=== PATIENT | female | born 1965 | race Caucasian/White ===

== ENCOUNTER → 2017-04-25 | Outpatient (CLI) | payer OTHER | LOC: FIMAGING 13:34 | PROVIDERS: ATTEND Obstetrics & Gynecology | DX: Z12.31 Encounter for screening mammogram for malignant neoplasm of breast (principal) | CPT/HCPCS: G0202 ==

== ENCOUNTER → 2017-05-09 | Outpatient (CLI) | payer OTHER | LOC: FIMAGING 13:08 | PROVIDERS: ATTEND Physical Medicine & Rehabilitation | DX: M51.36 Other intervertebral disc degeneration, lumbar region (principal); M51.37 Other intervertebral disc degeneration, lumbosacral region; M46.96 Unspecified inflammatory spondylopathy, lumbar region; M51.26 Other intervertebral disc displacement, lumbar region ==

== ENCOUNTER 2018-04-14 13:52 | Emergency (ER) | payer OTHER ==
[2018-04-14 14:00] VITALS: BP 155/103
--- NOTE | 2018-04-14 14:55 | EDPHY ---
H & P Time Seen by Provider: 04/14/18 14:33 HPI/ROS: CHIEF COMPLAINT: Finger injury HISTORY OF PRESENT ILLNESS: 52-year-old female presents to the emergency department complaining of isolated pain in her right ring finger. The patient states that she had a syncopal episode yesterday while she was at home and her right ring finger at the PIP joint was displaced. She was able to relocate this. She now presents to the emergency department for evaluation of her right finger injury. She states that she has a history of labile blood pressure. She is on labetalol 200 mg three times daily. They have been changing the dosage of this. She states that she also has a history of chronic pain in his on opiate medication that they are also waiting her down. She states that she has had these syncopal episodes multiple times in the past. The episode yesterday was witnessed by her he tried to catch her. He does not think that she hit her head. She denies a headache. Denies neck or back pain. Denies chest pain or difficulty breathing. Denies abdominal pain. Denies paresthesias in her fingers. Denies pain in her wrist or elbow. REVIEW OF SYSTEMS: Constitutional: No fever, no chills. Eyes: No double or blurry vision. ENT: No sore throat. Respiratory: No cough, no shortness of breath. Cardiac: No chest pain. Gastrointestinal: No abdominal pain, vomiting or diarrhea. Genitourinary: No dysuria. Musculoskeletal: No neck or back pain. Skin: No rashes. Neurological: No headache. Past Medical/Surgical History: Chronic neck pain, hypothyroidism, cervical spine surgery Social History: Smoking Status: Never smoked Physical Exam: General Appearance: Alert, no distress. No visible signs of trauma to her head. She is mentating normally and answering questions appropriately. 155/103 Eyes: Pupils equal and round. Extraocular motions are all intact. ENT: Mouth: Mucous membranes moist. Respiratory: No wheezing, rhonchi, or rales, lungs are clear to auscultation. Cardiovascular: Regular rate and rhythm. Gastrointestinal: Abdomen is soft and nontender, no masses, no rebound or guarding, bowel sounds normal. Neurological: Alert and oriented x 3, cranial nerves II through XII grossly intact Skin: Warm and dry, no rashes. Musculoskeletal: Nontender to palpate along the cervical, thoracic or lumbar spine. Neck is supple. Extremities: Swelling and ecchymosis noted to the right 4th finger. She has pain with palpation especially at the right 4th PIP joint. Limited flexion secondary to pain. Normal sensation to light touch with normal 2 point discrimination. The other fingers do not appear injured. No rotational deformities noted currently. Full range of motion of her right wrist. Nontender to palpate the right elbow or shoulder. Psychiatric: Patient is oriented X 3, there is no agitation. Constitutional: Initial Vital Signs Temperature (C) 36.7 C 04/14/18 13:58 Heart Rate 75 04/14/18 13:58 Respiratory Rate 18 04/14/18 13:58 Blood Pressure 155/103 H 04/14/18 13:58 O2 Sat (%) 97 04/14/18 13:58 O2 Delivery Mode Room Air Allergies/Adverse Reactions: EMIR Inhibitors [Emir Inhibitors] Allergy (Verified 04/14/18 13:55) losartan potassium [From Cozaar] Allergy (Verified 04/14/18 13:55) tramadol [Tramadol] Allergy (Verified 04/14/18 13:55) Home Medications: Medication Instructions Recorded Acyclovir [Zovirax 400 mg (*)] 400 mg PO TID PRN 01/15/14 Gabapentin [Neurontin 400 MG (*)] 400 mg PO TID 01/15/14 Levothyroxine [Synthroid 75 mcg 75 mcg PO DAILY06 01/15/14 (*)] Venlafaxine Xr [Effexor Xr] 150 mg PO DAILY 01/15/14 Ibuprofen [Motrin (*)] 600 mg PO Q6 PRN 01/17/14 Cholecalciferol Vit D3 [Vitamin D3 2,000 units PO DAILY 02/25/15 2000 units] Norgestimate-Ethinyl Estradiol 1 tab PO DAILY 02/25/15 [Sprintec 28 Day Tablet] Labetalol HCl [Trandate 100 mg (*)] 100 mg PO BID #60 tab 03/02/15 Albuterol [Proventil Neb] 3 ml IH TID PRN 03/16/15 Guaifenesin/D-Methorphan Hb 1 tab PO BID PRN 03/16/15 [Mucinex Dm ER 1,200-60 mg Tab] oxyCODONE IR [Oxycodone Ir (*)] 60 mg PO TID PRN 03/16/15 SUBOXONE 2mg/0.5mg 04/14/18 tiZANidine HCL 04/14/18 Medical Decision Making - Diagnostics Imaging Results: Imaging Impressions Finger X-Ray 04/14/18 14:01 Impression: No fracture or persistent malalignment. Imaging: I viewed and interpreted images myself Procedures: Patient was placed in [place] splint and fingers were facundo-taped. ED Course/Re-evaluation: 52-year-old female presents to the emergency department after having syncopal episode yesterday. She does not want to be worked up for syncopal episode. She states that this happens numerous times as a are adjusting her blood pressure. She only wants evaluation of her right middle finger. X-rays of the right middle finger reveal no obvious fractures. She reports that the finger was dislocated and she was able to easily relocate this on her own. She was placed in a splint and given orthopedic hand surgical referral. Differential Diagnosis: Including but not limited to finger sprain, dislocation, fracture Syncope including but not limited to vasovagal syncope, arrhythmia, dehydration , and blood loss. Departure - Departure Disposition: Home, Routine, Self-Care Clinical Impression: Sprain of right ring finger Qualifiers: Encounter type: initial encounter Sprain of finger site: interphalangeal joint Qualified Code(s): S63.634A - Sprain of interphalangeal joint of right ring finger, initial encounter Condition: Good Instructions: Finger Sprain (ED) Additional Instructions: Keep splint on and keep it dry. Facundo-taped for comfort and support. Ibuprofen 600 mg every 8 hr as needed for pain. Ice to help reduce swelling. Follow up with orthopedic hand surgeon. Referrals: Kennedy Barrera MD [Medical Doctor] - 5-7 days, call for appt. (Orthopedic surgeon on-call) Kendell Rinaldi MD [Medical Doctor] - 5-7 days, call for appt. (Hand surgeon on -call)
== END 2018-04-14 15:05 | disposition home or self-care (01) ==
DX: S63.634A Sprain of interphalangeal joint of right ring finger, initial encounter (principal); R55 Syncope and collapse; W19.XXXA Unspecified fall, initial encounter; Y92.009 Unspecified place in unspecified non-institutional (private) residence as the place of occurrence of the external cause

== ENCOUNTER → 2018-05-21 | Outpatient (CLI) | payer OTHER | LOC: FIMAGING 12:34 | PROVIDERS: ATTEND Obstetrics & Gynecology | DX: Z12.31 Encounter for screening mammogram for malignant neoplasm of breast (principal) ==

== ENCOUNTER → 2018-12-02 | Outpatient (CLI) | payer OTHER | LOC: MERGE 17:11 → BMCIMAGING 17:11 | PROVIDERS: ATTEND Emergency Medicine | DX: R91.8 Other nonspecific abnormal finding of lung field (principal); R05 Cough ==